=== PATIENT | male | born 1990 | race Caucasian/White ===

== ENCOUNTER 2017-04-20 07:11 | Emergency (ER) | payer SELFPAY ==
[2017-04-21 15:57] LABS: BLOOD UREA NITROGEN 15 mg/dL (7-18)
[2017-04-21 15:59] LABS: IS PT STATUS REG ER OR PRE ER? YES
== END 2017-04-20 09:20 | disposition home or self-care (01) ==
LOC: ED 07:11
DX: Z02.9 Encounter for administrative examinations, unspecified (principal)
CPT/HCPCS: 36415; 80048; 82040; 84484; 85025; 99281

== ENCOUNTER → 2017-04-20 | Emergency (ER) | payer SELFPAY | LOC: ED 07:11 | DX: J02.0 Streptococcal pharyngitis (principal); R06.00 Dyspnea, unspecified | CPT/HCPCS: 71020; 93005; 99284 ==

== ENCOUNTER 2020-05-11 18:03 | Emergency (ER) | payer BC ==
[~2020-05-11] VITALS: Ht 185.4 cm; Wt 170.8 kg
[2020-05-11 18:10] VITALS: BP 145/85
--- NOTE | 2020-05-11 18:20 | NUR ---
FIRST CONTACT WITH PT. PT C/O RT EYE PAIN, PT STATES "I GOT SOMETHING IN ME EYE." PT DENIES ANY OTHER SX. [facility] DONE AT TRIAGE. PT'S AOX4. RESPS EVEN AND UNLABORED.
[2020-05-11] MEDS ORDERED: PROPARACAINE OPHTH 0.5%, 15ML ONE (18:48)
[2020-05-11] MEDS ORDERED: FLUORESCEIN OPHTHALMIC 1 MG STRIP ONE (18:48)
--- NOTE | 2020-05-11 18:54 | NUR ---
REPORT GIVEN TO MARCELLA DAVILA.
--- NOTE | 2020-05-11 18:56 | NUR ---
REPORT FROM GLORIA DAVILA.
[2020-05-11] MEDS ORDERED: PROPARACAINE OPHTH 0.5%, 15ML EACHEYE ONE (19:00)
[2020-05-11] MEDS ORDERED: FLUORESCEIN OPHTHALMIC 1 MG STRIP EACHEYE ONE (19:00)
--- NOTE | 2020-05-11 19:02 | NUR ---
PT TOLERATING ADRIANA LENS IRRIGATION. CALL LIGHT PLACED WITHIN REACH.
--- NOTE | 2020-05-11 19:12 | NUR ---
PT REPORTS BURNING IN RIGHT EYE FROM ADRIANA LENS, 250ML NS IN, REPORTED TO MD. PER MD OKAY TO REMOVE ADRIANA LENS.
== END 2020-05-11 19:59 | disposition home or self-care (01) ==
LOC: ED 19:52
DX: T15.01XA Foreign body in cornea, right eye, initial encounter (principal); H57.11 Ocular pain, right eye; X58.XXXA Exposure to other specified factors, initial encounter; Y93.89 Activity, other specified; Y92.89 Other specified places as the place of occurrence of the external cause; Y99.8 Other external cause status
CPT/HCPCS: 99284